=== PATIENT | female | born 1980 | race African-American/Black ===

== ENCOUNTER 2017-02-09 00:12 | Outpatient (CLI) | payer OTHER ==
[~2017-02-09] VITALS: Ht 157.5 cm; Wt 110.6 kg
[2017-02-09 01:27] LABS: HEMATOCRIT 27.7 % (36.0-46.0); MCH 23.8 PG (29.0-34.0); MCHC 30.3 G/DL (30.0-36.0); MCV 78.5 FL (83-99); MEAN PLAT.VOLUME 9.2 uM^3 (9.5-12.4); PLATELET COUNT 285 K/uL (156-360); RBC DIS.WIDTH-SD 40.1 % (39-53); RED BLOOD COUNT 3.53 M/uL (3.80-5.20); WHITE BLOOD COUNT 7.1 K/uL (4.1-10.2)
[2017-02-09 01:46] LABS: CHLORIDE 108 mEq/L (99-109); POTASSIUM 3.4 mEq/L (3.7-5.4); SODIUM 140 mEq/L (136-147)
[2017-02-09 01:48] LABS: GLUCOSE 131 mg/dL (70-99)
[2017-02-09 01:49] LABS: ANION GAP 8 MEQ/L (2-14)
[2017-02-09 01:52] LABS: GFR ESTIMATE (CALCULATED) > 59 mL/min/
[2017-02-09 01:53] LABS: UREA NITROGEN (BUN) 4 mg/dL (9-23)
[2017-02-09] MEDS ORDERED: PROVENTIL HFA6.7 GM IH (02:15)
[2017-02-09] MEDS ORDERED: PREDNISONE20 MG PO (02:15)
[2017-02-09 02:56] VITALS: BP 129/85
[2017-02-09] MEDS ORDERED: PRENATAL TABLE1 EAC3 PO (03:13)
[2017-02-09 04:02] LABS: ADD MIUA? YES; BILIRUBIN NEGATIVE; BLOOD NEGATIVE; COLOR YELLOW ((YELLOW)); GLUCOSE (STRIP) NEGATIVE; KETONES NEGATIVE; LEUKOCYTES NEGATIVE; NITRITE NEGATIVE; PROTEIN (STRIP) NEGATIVE; SPECIFIC GRAVITY 1.008 (1.000-1.030); UROBILINOGEN 0.2 MG/DL (0.2-1.0)
[2017-02-09 04:06] LABS: BACTERIA RARE /HPF; EPITHELIAL CELLS 1+ /HPF; MUCUS TRACE /LPF; RED BLOOD CELLS 0-5 /HPF (0-5); UCUL ADDED? NO; WHITE BLOOD CELLS 0-5 /HPF (0-5)
[2017-02-09 04:14] VITALS: BP 116/79
[2017-02-09 05:04] LABS: CANDIDA DNA PROBE POSITIVE; GARDNERELLA DNA PROBE POSITIVE; INTERNAL CONTROL VALID? YES
[2017-02-09 05:21] LABS: AMPHETAMINES QUANT VALUE 0 NG/ML; BARBITUATES QUANT VALUE 0 NG/ML; BENZODIAZEPINES QUANT VALUE 0 NG/ML; BENZODIAZEPINES, URINE SCREEN Negative (200 ng/mL); MARIJUANA QUANT VALUE 0 NG/ML; OPIATES QUANTITATIVE VALUE 0 NG/ML; PHENCYCLIDINE QUANT VALUE 0 NG/ML
[2017-02-10 11:58] LABS: CHLAMYDIA TRACHOMATIS NEGATIVE; NEISSERIA GONORRHOEAE NEGATIVE
== END 2017-02-09 05:10 | disposition home or self-care (01) ==
LOC: EME 00:12 → EXP 00:12 → LDRP-OP 00:12 → EDSTATUS 02:49 → 2WEST 02:50
PROVIDERS: Advanced Practice Midwife; Emergency Medicine; Obstetrics & Gynecology
DX: O26.853 Spotting complicating pregnancy, third trimester (principal); O99.513 Diseases of the respiratory system complicating pregnancy, third trimester; R06.02 Shortness of breath; J45.909 Unspecified asthma, uncomplicated; O34.219 Maternal care for unspecified type scar from previous cesarean delivery; Z3A.30 30 weeks gestation of pregnancy
CPT/HCPCS: 59025; 80048; 80306 90; 81003; 85027; 86900; 86901; 87086; 87480; 87491; 87510; 87591; 87660; 94640; 99281; 99284; G0378; J7512